=== PATIENT | male | born 1935 | race Caucasian/White ===

== ENCOUNTER 2020-04-02 14:25 | Emergency (ER) | payer MEDICARE, OTHER, SELFPAY ==
[2020-04-02] VITALS (18 sets, daily range): BP systolic 131–185; BP diastolic 61–77; PULSE 62–87; RESP 19–33; TEMP 36.6–37.2; O2SAT 86–100
--- NOTE | 2020-04-02 14:46 | DI.RAD.S_ITS ---
PROCEDURE: XR CHEST 1V INDICATIONS: Dyspnea TECHNIQUE: One view of the chest was acquired. COMPARISON: None. (There is a 2006 chest radiograph, which is not available for review at the time this dictation.) FINDINGS: Surgical changes and devices: Right shoulder arthroplasty hardware is partially seen. Lungs and pleura: Low lung volumes are noted. This causes a crowded appearance to the lung markings and limits evaluation. Generalized interstitial prominence can be seen. No pneumothorax or large pleural effusion can be seen. Mediastinum: Mediastinal contours appear normal. Heart size is normal. Bones and chest wall: No suspicious bony lesions. Age-appropriate bony degenerative changes are seen. Overlying soft tissues appear unremarkable. IMPRESSION: Low lung volumes, with interstitial prominence. The interstitial prominence may be artifactual and related to the low lung volumes or may represent a small amount of pulmonary edema. If clinically appropriate, a short-term followup chest series (with PA and lateral views) performed in deep inspiration is suggested for further evaluation. Dictated by: Oliverio Chaudhary M.D. on 04/02/2020 at 14:25 Approved by: Oliverio Chaudhary M.D. on 04/02/2020 at 14:26
--- NOTE | 2020-04-02 14:57 | ED_ITS ---
HPI - SOB/Dyspnea General Chief Complaint: Shortness of Breath/Dyspnea Stated Complaint: SOB Time Seen by Provider: 04/02/20 14:46 Source: patient and family Mode of arrival: Wheelchair History of Present Illness HPI Narrative: Patient sent here from urgent care from [place] for complaints of dyspnea no chest pain. 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 Seen by cardiology Dr. Skinner, cardiothoracic surgeon Dr. Warren. Is on Eliquis and Lasix. Complains bilateral leg swelling. Very dyspneic with short movements, just standing and pivoting causes him short of breath. No cough cold congestion fever chills. MD Complaint: shortness of breath Related Data Home Medications Medication Instructions Recorded Confirmed Fish Oil (Fish Oil 500 MG Softgel) 1,200 mg PO QDAY #0 08/23/11 atenolol 25 mg PO QDAY #0 08/23/11 naproxen [Naprosyn] 500 mg PO QDAY PRN #0 08/23/11 Glucosamine Sulfate (#GLUCOSAMINE) 750 mg PO BID #0 01/09/12 doxazosin [Cardura] 16 mg PO HS #0 01/09/12 metformin [Glucophage XR] 2,000 mg NG HS #0 01/09/12 Allergies Allergy/AdvReac Type Severity Reaction Status Date / Time lisinopril [LISINOPRIL] AdvReac Mild Cough Verified 04/02/20 15:12 Review of Systems Review of Systems Narrative: GENERAL: Denies chills, fatigue, malaise, fever, sweats. HEENT: Denies sinus pain, ear pain, sore throat RESPIRATORY: Complain dyspnea, denies cough CARDIOVASCULAR: Denies chest pain, palpitations complains of peripheral edema GASTROINTESTINAL: Denies nausea, vomiting, abdominal pain : Denies dysuria, frequency, hematuria MUSCULOSKELETAL: denies muscle or bony pain SKIN: Denies rash, skin lesions NEUROLOGIC: Denies weakness, numbness ROS Unobtainable: All systems reviewed & are unremarkable except as noted in HPI and below Exam Narrative Exam Narrative: GENERAL: in no distress, not toxic not dyspneic HEAD: Normocephalic. EYES: Pupils equal round No scleral icterus. No injection no discharge ENT: Mucous membranes moist. NECK: Trachea midline. CARDIOVASCULAR: Regular rate and rhythm without murmurs RESPIRATORY: Clear to auscultation. Breath sounds equal bilaterally. No wheezes, or rhonchi. Bilateral rales at the bases. GASTROINTESTINAL: Abdomen soft, non-tender EXTREMITIES: No gross deformities. Extensive bilateral symmetric calf in pedal and ankle edema. Nontender. BACK: No flank tenderness. NEURO: AOx4. SKIN: Warm and dry PSYCH: Not anxious, is cooperative Initial Vital Signs Initial Vital Signs: Vital Signs Temperature 98.9 F 04/02/20 14:35 Pulse Rate 73 04/02/20 14:35 Respiratory Rate 33 H 04/02/20 14:35 Blood Pressure 185/73 H 04/02/20 14:35 Pulse Oximetry 86 L 04/02/20 14:35 Course Course Course Narrative: No new issues during course of stay. Patient and understand need for transfer to [facility] for continuity of care Orders Ordered: ED Orders 04/02/20 14:43 Complete Blood Count AUTO DIFF Stat Comprehensive Metabolic Panel Stat NT-proBNP (BNP-Adult 18+) Stat Partial Thromboplastin Time Stat Prothrombin Time INR Stat Troponin & CK Cardiac Panel Stat 04/02/20 14:46 XR chest 1V Stat 04/02/20 15:17 COVID19 Stat Discontinued Medications Aspirin (Aspirin 81 Mg Chew Tab) 324 mg PO NOW ONE Stop: 04/02/20 14:47 Last Admin: 04/02/20 15:12 Dose: 324 mg Documented by: COOPER Furosemide (Furosemide 40 Mg/4 Ml Vial) 40 mg IV NOW ONE Stop: 04/02/20 15:29 Last Admin: 04/02/20 15:46 Dose: 40 mg Documented by: JAIRO Consultations Consultation #1: Spoke with Cardiology, Dr. kc, on-call Cardiology for patient's cardiology group. Agrees patient needs to be transferred to their facility for continuity of care and diuresis and further workup including echocardiogram, hospitalist admit. Reviewed laboratory studies with him for comparison Time: 15:28 Consultation #2: Spoke with hospitalist, Dr. Lux, hospitalist at [facility], will accept patient Vital Signs Vital signs: Vital Signs - 8 hr 04/02/20 14:35 04/02/20 14:53 04/02/20 15:00 Temperature 98.9 F Pulse Rate 73 68 70 Respiratory Rate 33 H Blood Pressure 185/73 H Pulse Oximetry 86 L 99 100 04/02/20 15:01 04/02/20 15:02 04/02/20 15:30 Temperature Pulse Rate 67 62 69 Respiratory Rate 24 Blood Pressure 163/71 H 160/70 H Pulse Oximetry 100 99 99 04/02/20 16:00 04/02/20 16:30 04/02/20 16:31 Temperature Pulse Rate 64 67 63 Respiratory Rate 23 19 21 Blood Pressure 155/68 H 159/67 H Pulse Oximetry 99 99 99 04/02/20 17:00 04/02/20 17:01 04/02/20 17:30 Temperature Pulse Rate 62 64 78 Respiratory Rate 22 22 33 H Blood Pressure 151/68 H Pulse Oximetry 98 98 100 04/02/20 17:31 Temperature Pulse Rate 76 Respiratory Rate 31 H Blood Pressure 131/77 Pulse Oximetry 97 MDM - SOB/Dyspnea Differential Diagnosis Differential diagnosis: Likely congestive heart failure and community acquired pneumonia Lab Data Attestation: I reviewed the patient's lab results. Result diagrams: 04/02/20 14:43 04/02/20 14:43 Labs: Lab Results 04/02/20 04/02/20 04/02/20 Range/Units 14:43 14:43 14:43 WBC 6.7 (4.5-11.0) X10^3/uL RBC 3.32 L (4.5-5.9) X10^6/uL Hgb 9.8 L (13.5-17.5) g/dL Hct 30.0 L (41-53) % MCV 90.3 (80-100) fL MCH 29.6 (26-34) PG MCHC 32.8 (30-36) % RDW 13.7 (11.6-14.8) % Plt Count 181 (150-400) X10^3/uL Neut % (Auto) 73.6 (50-75) % Lymph % (Auto) 16.0 L (25-40) % [place] % (Auto) 8.3 (3-14) % Eos % (Auto) 1.7 L (2-4) % Baso % (Auto) 0.4 (0-2) % Neut # (Auto) 4900 (9892-4394) /uL Lymph # (Auto) 1100 (9672-7164) /uL [place] # (Auto) 600 (0-900) /uL Eos # (Auto) 100 (0-450) /uL Baso # (Auto) 0 (0-100) /uL PT 15.3 H (10.1-12.7) SECONDS INR 1.3 (0.9-1.3) APTT 33 (26.4-36.2) SECONDS Sodium 137 (137-145) mmol/L Potassium 4.0 (3.4-5.1) mmol/L Chloride 97 L (98-107) mmol/L Carbon Dioxide 39 H (22-32) mmol/L BUN 26 H (9-20) mg/dL Creatinine 1.38 H (0.66-1.25) mg/dL Estimated GFR 49.3 L (>60) mL/min BUN/Creatinine Ratio 18.8 (6-22) Glucose 188 H (80-110) mg/dL Calcium 8.9 (8.4-10.2) mg/dL Total Bilirubin 0.4 (0.2-1.3) mg/dL AST 21 (17-59) IU/L ALT 18 (<50) IU/L Alkaline Phosphatase 69 (38-126) U/L Total Creatine Kinase 45 L (55-170) U/L CK-MB (CK-2) TNP CK-MB (CK-2) Rel Index TNP Troponin I 0.078 H (0.01-0.034) ng/mL NT-Pro-B Natriuret Pep 2570 H (<450) pg/mL Total Protein 6.3 (6.3-8.2) g/dL Albumin 3.5 (3.5-5.0) g/dL Globulin 2.8 (1.7-4.1) g/dL Albumin/Globulin Ratio 1.3 (1.0-2.8) SARS-CoV-2 (PCR) (Negative) 04/02/20 Range/Units 15:17 WBC (4.5-11.0) X10^3/uL RBC (4.5-5.9) X10^6/uL Hgb (13.5-17.5) g/dL Hct (41-53) % MCV (80-100) fL MCH (26-34) PG MCHC (30-36) % RDW (11.6-14.8) % Plt Count (150-400) X10^3/uL Neut % (Auto) (50-75) % Lymph % (Auto) (25-40) % [place] % (Auto) (3-14) % Eos % (Auto) (2-4) % Baso % (Auto) (0-2) % Neut # (Auto) (3741-3348) /uL Lymph # (Auto) (5519-3495) /uL [place] # (Auto) (0-900) /uL Eos # (Auto) (0-450) /uL Baso # (Auto) (0-100) /uL PT (10.1-12.7) SECONDS INR (0.9-1.3) APTT (26.4-36.2) SECONDS Sodium (137-145) mmol/L Potassium (3.4-5.1) mmol/L Chloride (98-107) mmol/L Carbon Dioxide (22-32) mmol/L BUN (9-20) mg/dL Creatinine (0.66-1.25) mg/dL Estimated GFR (>60) mL/min BUN/Creatinine Ratio (6-22) Glucose (80-110) mg/dL Calcium (8.4-10.2) mg/dL Total Bilirubin (0.2-1.3) mg/dL AST (17-59) IU/L ALT (<50) IU/L Alkaline Phosphatase (38-126) U/L Total Creatine Kinase (55-170) U/L CK-MB (CK-2) CK-MB (CK-2) Rel Index Troponin I (0.01-0.034) ng/mL NT-Pro-B Natriuret Pep (<450) pg/mL Total Protein (6.3-8.2) g/dL Albumin (3.5-5.0) g/dL Globulin (1.7-4.1) g/dL Albumin/Globulin Ratio (1.0-2.8) SARS-CoV-2 (PCR) Negative (Negative) Imaging Data Chest x-ray: Radiologist's Impression: [address] [id number] ReportSigned Patient: Puma Ramirez JMR#: [id number]: 8Acct:[id number]/Sex: 84 / MDate of Service: 04/02/20Loc: EDAccession Number: [id number] Procedure: XR chest 1V Ordering Provider: Ren Resendiz MD PROCEDURE: XR CHEST 1V INDICATIONS: Dyspnea TECHNIQUE: One view of the chest was acquired. COMPARISON: None. (There is a 2006 chest radiograph, which is not available for review at the time this dictation.) FINDINGS: Surgical changes and devices: Right shoulder arthroplasty hardware is partially seen. Lungs and pleura: Low lung volumes are noted. This causes a crowded appearance to the lung markings and limits evaluation. Generalized interstitial prominence can be seen. No pneumothorax or large pleural effusion can be seen. Mediastinum: Mediastinal contours appear normal. Heart size is normal. Bones and chest wall: No suspicious bony lesions. Age-appropriate bony degenerative changes are seen. Overlying soft tissues appear unremarkable. IMPRESSION: Low lung volumes, with interstitial prominence. The interstitial prominence may be artifactual and related to the low lung volumes or may represent a small amount of pulmonary edema. If clinically appropriate, a short-term followup chest series (with PA and lateral views) performed in deep inspiration is suggested for further evaluation. Dictated by: Oliverio Chaudhary M.D. on 04/02/2020 at 14:25 Approved by: Oliverio Chaudhary M.D. on 04/02/2020 at 14:26 ECG Data Attestation: I personally reviewed and interpreted this ECG as follows: Interpretation: Atrial sensed ventricular paced rhythm. Rate 70. No ST elevation or depression MDM Narrative Medical decision making narrative: Appropriate for transfer for continuity of care as patient had recent surgery pacemaker and valve replacement. Patient and agree and understand. Discharge Plan Departure Patient Disposition: [facility] Clinical Impression: Dyspnea Qualifiers: Dyspnea type: unspecified Qualified Code(s): R06.00 - Dyspnea, unspecified Prescriptions: No Action atenolol 100 MG tablet 25 mg PO QDAY Qty: 0 RF: 0 Fish Oil (Fish Oil 500 MG Softgel) 1,200 mg PO QDAY Qty: 0 RF: 0 naproxen [Naprosyn] 500 MG tablet 500 mg PO QDAY PRNQty: 0 RF: 0 doxazosin [Cardura] 8 MG tablet 16 mg PO HS Qty: 0 RF: 0 Glucosamine Sulfate (#GLUCOSAMINE) 750 mg PO BID Qty: 0 RF: 0 metformin [Glucophage XR] 500 MG tablet extended release 24 hr 2,000 mg NG HS Qty: 0 RF: 0 Referrals: Justino Vigil DO [Primary Care Provider] -
[2020-04-02 15:00] LABS: Add Manual Diff / Slide Review NO; Basophils Absolute Auto 0 /uL (0-100); Basophils Percent Auto 0.4 % (0-2); Eosinophils Absolute Auto 100 /uL (0-450); Eosinophils Percent Auto 1.7 % (2-4); Hemoglobin 9.8 g/dL (13.5-17.5); Lymphocytes Absolute Auto 1100 /uL (1100-4500); Mean Corpuscular HGB Conc 32.8 % (30-36); Mean Corpuscular Hemoglobin 29.6 PG (26-34); Mean Corpuscular Volume 90.3 fL (80-100); Monocytes Absolute Auto 600 /uL (0-900); Monocytes Percent Auto 8.3 % (3-14); Neutrophils Absolute Auto 4900 /uL (1500-7000); Neutrophils Percent Auto 73.6 % (50-75); Platelet Count 181 X10^3/uL (150-400); Red Blood Cell Count 3.32 X10^6/uL (4.5-5.9); Red Cell Distribution Width 13.7 % (11.6-14.8); White Blood Cell Count 6.7 X10^3/uL (4.5-11.0)
[2020-04-02 15:07] LABS: INR 1.3 (0.9-1.3); Prothrombin Time 15.3 SECONDS (10.1-12.7)
[2020-04-02 15:10] LABS: PTT Partial Thromboplastin Tim 33 SECONDS (26.4-36.2)
[2020-04-02 15:12] LABS: Alanine Aminotransferase 18 IU/L (<50); Albumin 3.5 g/dL (3.5-5.0); Albumin Globulin Ratio 1.3 (1.0-2.8); Alkaline Phosphatase 69 U/L (38-126); Aspartate Aminotransferase 21 IU/L (17-59); BUN Creatinine Ratio 18.8 (6-22); Bilirubin Total 0.4 mg/dL (0.2-1.3); Blood Urea Nitrogen 26 mg/dL (9-20); Calcium 8.9 mg/dL (8.4-10.2); Carbon Dioxide 39 mmol/L (22-32); Chloride 97 mmol/L (98-107); Creatine Kinase 45 U/L (55-170); Estimated Glomerular Filt Rate 49.3 mL/min (>60); Globulin 2.8 g/dL (1.7-4.1); Glucose 188 mg/dL (80-110); HEMOLYSIS < 15 (0-50); Sodium 137 mmol/L (137-145); Total Protein 6.3 g/dL (6.3-8.2)
[2020-04-02] MEDS: ASPIRIN 81 MG CHEW TAB 324 MG PO (15:12)
[2020-04-02 15:24] LABS: NT-proBNP (BNP-Adult 18+) 2570 pg/mL (<450); Troponin I 0.078 ng/mL (0.01-0.034)
[2020-04-02 15:42] LABS: COVID19 -Nasal RAPID Negative (Negative)
[2020-04-02] MEDS: FUROSEMIDE 40 MG/4 ML VIAL IV (15:46)
== END 2020-04-02 19:25 | disposition short-term general hospital (02) ==
PROVIDERS: Emergency Provider Emergency Medicine; Family Provider Family Medicine; PCP Family Medicine
DX: R06.00 Dyspnea, unspecified (principal); Z95.0 Presence of cardiac pacemaker; Z95.2 Presence of prosthetic heart valve; M79.89 Other specified soft tissue disorders; Z20.822 Contact with and (suspected) exposure to COVID-19
CPT/HCPCS: 36415; 71045; 80053; 82550; 83880; 84484; 85025; 85610; 85730; 87635; 93005; 96374; 99284; C9803; J1940

== ENCOUNTER 2021-02-01 18:28 | Emergency (ER) | payer MEDICARE, OTHER, SELFPAY ==
[2021-02-01] VITALS (13 sets, daily range): BP systolic 103–183; BP diastolic 69–108; PULSE 60–70; RESP 17–32; TEMP 36.6; O2SAT 91–98; BMI 40.6
--- NOTE | 2021-02-01 18:58 | DI.RAD.S_ITS ---
PROCEDURE: XR CHEST 2V INDICATIONS: shortness of breath TECHNIQUE: 2 views of the chest were acquired. COMPARISON: None. FINDINGS: Surgical changes and devices: None. Lungs and pleura: Lungs are clear. No pleural effusions or pneumothorax. Mediastinum: Mediastinal contours are normal. Heart size is normal. Bones and chest wall: No suspicious bony abnormalities. Soft tissues appear unremarkable. IMPRESSION: No acute cardiopulmonary process demonstrated radiographically. Dictated by: Geoff Lakhani M.D. on 02/01/2021 at 19:33 Approved by: Geoff Lakhani M.D. on 02/01/2021 at 19:33
[2021-02-01 19:07] LABS: Add Manual Diff / Slide Review NO; Basophils Absolute Auto 100 /uL (0-100); Eosinophils Absolute Auto 100 /uL (0-450); Hematocrit 35.9 % (41-53); Hemoglobin 12.2 g/dL (13.5-17.5); Lymphocytes Absolute Auto 1400 /uL (1100-4500); Lymphocytes Percent Auto 19.1 % (25-40); Mean Corpuscular HGB Conc 33.9 % (30-36); Mean Corpuscular Hemoglobin 29.7 PG (26-34); Mean Corpuscular Volume 87.6 fL (80-100); Monocytes Absolute Auto 500 /uL (0-900); Monocytes Percent Auto 6.5 % (3-14); Neutrophils Absolute Auto 5200 /uL (1500-7000); Neutrophils Percent Auto 71.4 % (50-75); Platelet Count 168 X10^3/uL (150-400); Red Cell Distribution Width 14.1 % (11.6-14.8); White Blood Cell Count 7.3 X10^3/uL (4.5-11.0)
--- NOTE | 2021-02-01 19:07 | ED.SKABFB ---
HPI - Skin/Abscess/Foreign Bdy General Chief complaint: Extremity Problem,Nontraumatic Stated complaint: possible phlebitis Time Seen by Provider: 02/01/21 18:52 Source: patient Mode of arrival: Wheelchair Limitations: no limitations History of Present Illness HPI narrative: Patient is a 85-year-old male who is here for evaluation swelling to his bilateral lower extremities with left being greater than right. This is been going on for the past several days. He does have history of heart failure. His on diuretics. He did miss a couple doses of his afternoon dose of diuretics over the past couple days. He has been taking his morning doses. He is having shortness of breath but not any worse than normal. He has no chest pain. He initially went to walk-in clinic for evaluation of shoulder pain and back pain and arm pain and left hip pain and left knee pain. It was the provider at the walk-in clinic noticed that his lower extremity is swollen and that is what he was sent to the emergency department to have evaluated. He denies any falls. He states that his shoulder and back and arm pain he can be reproduced with movement but not reproduce with palpation. He is on anticoagulation. Has had a aortic valve replacement. Related Data Home Medications Medication Instructions Recorded Confirmed Fish Oil (Fish Oil 500 MG Softgel) 1,200 mg PO QDAY #0 08/23/11 atenolol 100 mg tablet 25 mg PO QDAY #0 08/23/11 naproxen 500 mg tablet (Naprosyn) 500 mg PO QDAY PRN #0 08/23/11 Glucosamine Sulfate (#GLUCOSAMINE) 750 mg PO BID #0 01/09/12 doxazosin 8 mg tablet (Cardura) 16 mg PO HS #0 01/09/12 metformin 500 mg tablet,extended 2,000 mg NG HS #0 01/09/12 release 24 hr (Glucophage XR) Allergies Allergy/AdvReac Type Severity Reaction Status Date / Time lisinopril [LISINOPRIL] AdvReac Mild Cough Verified 04/02/20 15:12 Review of Systems Constitutional Constitutional: Denies fever(s) and Denies headache(s) ENT Ears, Nose, Mouth, and Throat: Denies headache(s) Cardiovascular Cardiovascular: Denies chest pain and Denies dyspnea Respiratory Respiratory: Denies dyspnea Gastrointestinal Gastrointestinal: Reports system reviewed and no additional complaints, except as documented Musculoskeletal Musculoskeletal: Reports system reviewed and no additional complaints, except as documented and Reports as per HPI Integumentary/Breasts Skin/Breast: Reports system reviewed and no additional complaints, except as documented Neurologic Neurologic: Denies headache(s) Hematologic/Lymphatic On Anticoagulants: Yes Patient History Medical History CHF (congestive heart failure) Hypertension Surgical History (Updated 02/02/21 @ 01:58 by Surjit Vincent DO) Aortic valve replaced Social History Smoking Status: Former smoker Smoking Status: Former smoker Substance Use Type: does not use Exam Initial Vital Signs Initial Vital Signs: Vital Signs Temperature 97.9 F 02/01/21 18:45 Pulse Rate 70 02/01/21 18:45 Respiratory Rate 28 H 02/01/21 18:45 Pulse Oximetry 96 02/01/21 18:45 Const General: cooperative HENMT Head: normal to inspection and normocephalic Resp Effort & Inspection: not labored, no respiratory distress and tachypneic Auscultation: clear to auscultation bilaterally Cardio Rate: regular rate Rhythm: regular rhythm Heart Sounds: murmur GI Palpation: soft Skin General: dry skin Neuro General: patient alert, patient awake, patient oriented x3 and moves all extremities Extrem Other: I cannot reproduce any discomfort with palpation of the left scapula over the left shoulder the left arm. He does have bilateral lower extremity swelling which appears to be localized below the knees. Left is greater than right. No erythema. Psych Appearance: grossly normal and well kempt Scores GCS Warner coma scale eye opening: Spontaneous Itzel coma scale verbal response: Orientated Warner coma scale motor response: Obey commands Itzel coma scale total score: 15 Course Orders Ordered: ED Orders 02/01/21 18:50 Complete Blood Count AUTO DIFF Stat Comprehensive Metabolic Panel Stat Lactate (Lactic Acid) Stat NT-proBNP (BNP-Adult 18+) Stat Prothrombin Time INR Stat 02/01/21 18:58 XR chest 2V Stat EKG-12 Lead Stat Measure peak expiratory flow ONCE RT Consult Eval and Treat Now 02/01/21 19:09 US periph venous low extrem bi Stat 02/01/21 19:17 Troponin & CK Cardiac Panel Stat Vital Signs Vital signs: Vital Signs - 8 hr 02/01/21 18:45 02/01/21 18:46 02/01/21 19:00 Temperature 97.9 F Pulse Rate 70 65 69 Respiratory Rate 28 H 32 H 31 H Blood Pressure 103/71 Pulse Oximetry 96 98 98 02/01/21 19:01 02/01/21 19:30 02/01/21 19:31 Temperature Pulse Rate 63 64 61 Respiratory Rate 20 20 20 Blood Pressure 169/74 H Pulse Oximetry 97 96 95 02/01/21 20:00 02/01/21 20:01 02/01/21 20:04 Temperature Pulse Rate 66 68 61 Respiratory Rate 20 22 21 Blood Pressure 183/108 H 158/69 H Pulse Oximetry 96 94 94 02/01/21 20:30 02/01/21 20:31 02/01/21 21:00 Temperature Pulse Rate 63 60 65 Respiratory Rate 17 17 21 Blood Pressure 164/76 H Pulse Oximetry 91 92 94 02/01/21 21:23 Temperature Pulse Rate 64 Respiratory Rate 20 Blood Pressure 169/73 H Pulse Oximetry 94 MDM - Skin/Abscess/Foreign Bdy Lab Data Attestation: I reviewed the patient's lab results. Result diagrams: 02/01/21 18:50 02/01/21 18:50 Labs: Lab Results 02/01/21 02/01/21 02/01/21 Range/Units 18:50 18:50 18:50 WBC 7.3 (4.5-11.0) X10^3/uL RBC 4.10 L (4.5-5.9) X10^6/uL Hgb 12.2 L (13.5-17.5) g/dL Hct 35.9 L (41-53) % MCV 87.6 (80-100) fL MCH 29.7 (26-34) PG MCHC 33.9 (30-36) % RDW 14.1 (11.6-14.8) % Plt Count 168 (150-400) X10^3/uL Neut % (Auto) 71.4 (50-75) % Lymph % (Auto) 19.1 L (25-40) % [place] % (Auto) 6.5 (3-14) % Eos % (Auto) 2.0 (2-4) % Baso % (Auto) 1.0 (0-2) % Neut # (Auto) 5200 (6106-5909) /uL Lymph # (Auto) 1400 (6801-1299) /uL Providence # (Auto) 500 (0-900) /uL Eos # (Auto) 100 (0-450) /uL Baso # (Auto) 100 (0-100) /uL PT 14.4 H (10.1-12.7) SECONDS INR 1.3 (0.9-1.3) Sodium 140 (137-145) mmol/L Potassium 4.0 (3.4-5.1) mmol/L Chloride 103 (98-107) mmol/L Carbon Dioxide 30 (22-32) mmol/L BUN 36 H (9-20) mg/dL Creatinine 1.70 H (0.66-1.25) mg/dL Estimated GFR 38.7 L (>60) mL/min BUN/Creatinine Ratio 21.2 (6-22) Glucose 339 H (80-110) mg/dL Lactate (0.7-2.1) mmol/L Calcium 9.3 (8.4-10.2) mg/dL Total Bilirubin 0.5 (0.2-1.3) mg/dL AST 27 (17-59) IU/L ALT 16 (<50) IU/L Alkaline Phosphatase 66 (38-126) U/L Total Creatine Kinase (55-170) U/L CK-MB (CK-2) CK-MB (CK-2) Rel Index Troponin I (0.01-0.034) ng/mL NT-Pro-B Natriuret Pep 3140 H (<450) pg/mL Total Protein 6.8 (6.3-8.2) g/dL Albumin 3.9 (3.5-5.0) g/dL Globulin 2.9 (1.7-4.1) g/dL Albumin/Globulin Ratio 1.3 (1.0-2.8) 02/01/21 02/01/21 Range/Units 18:50 19:17 WBC (4.5-11.0) X10^3/uL RBC (4.5-5.9) X10^6/uL Hgb (13.5-17.5) g/dL Hct (41-53) % MCV (80-100) fL MCH (26-34) PG MCHC (30-36) % RDW (11.6-14.8) % Plt Count (150-400) X10^3/uL Neut % (Auto) (50-75) % Lymph % (Auto) (25-40) % Providence % (Auto) (3-14) % Eos % (Auto) (2-4) % Baso % (Auto) (0-2) % Neut # (Auto) (6121-2397) /uL Lymph # (Auto) (1521-3012) /uL Providence # (Auto) (0-900) /uL Eos # (Auto) (0-450) /uL Baso # (Auto) (0-100) /uL PT (10.1-12.7) SECONDS INR (0.9-1.3) Sodium (137-145) mmol/L Potassium (3.4-5.1) mmol/L Chloride (98-107) mmol/L Carbon Dioxide (22-32) mmol/L BUN (9-20) mg/dL Creatinine (0.66-1.25) mg/dL Estimated GFR (>60) mL/min BUN/Creatinine Ratio (6-22) Glucose (80-110) mg/dL Lactate 1.5 (0.7-2.1) mmol/L Calcium (8.4-10.2) mg/dL Total Bilirubin (0.2-1.3) mg/dL AST (17-59) IU/L ALT (<50) IU/L Alkaline Phosphatase (38-126) U/L Total Creatine Kinase 96 (55-170) U/L CK-MB (CK-2) TNP CK-MB (CK-2) Rel Index TNP Troponin I 0.042 H (0.01-0.034) ng/mL NT-Pro-B Natriuret Pep (<450) pg/mL Total Protein (6.3-8.2) g/dL Albumin (3.5-5.0) g/dL Globulin (1.7-4.1) g/dL Albumin/Globulin Ratio (1.0-2.8) Imaging Data Chest x-ray: Radiologist's Impression: [address] [address] XRay Report Signed Patient: Puma Ramirez MR#: [id number] : 1935 Acct:[id number] Age/Sex: 85 / M Date of Service: 02/01/21 Loc: ED Accession Number: [id number] ?? Procedure: XR chest 2V Ordering Provider: Surjit Vincent D.O. PROCEDURE:? XR CHEST 2V ? INDICATIONS:? shortness of breath ? TECHNIQUE:? 2 views of the chest were acquired.? ? COMPARISON:? None. ? FINDINGS:? ? Surgical changes and devices:? None.? ? Lungs and pleura:? Lungs are clear.? No pleural effusions or pneumothorax.? ? Mediastinum:? Mediastinal contours are normal.? Heart size is normal.? ? Bones and chest wall:? No suspicious bony abnormalities.? Soft tissues appear unremarkable.? ? IMPRESSION:? No acute cardiopulmonary process demonstrated radiographically. ? ? Dictated by: Geoff Lakhani M.D. on 02/01/2021 at 19:33 ? ? Approved by: Geoff Lakhani M.D. on 02/01/2021 at 19:33?? US - DVT: Radiologist's Impression: [place] [address] Ultrasound Report Signed Patient: Puma Ramirez MR#: [id number] : 1935 Acct:[id number] Age/Sex: 85 / M Date of Service: 02/01/21 Loc: ED Accession Number: [id number] ?? Procedure: US periph venous low extrem bi Ordering Provider: Surjit Vincent D.O. PROCEDURE:? US PERIPH VENOUS LOW EXTREM BI ? INDICATIONS:? PAIN ? TECHNIQUE:? Real-time imaging, as well as color and pulse Doppler interrogation, were performed of the deep veins of both legs from the inguinal ligament to the popliteal fossa.? ? COMPARISON:? None. ? FINDINGS:? ? Right: The common femoral, femoral and popliteal veins are normally compressible, and free of intraluminal thrombus.? Color and pulse Doppler demonstrate normal phasic intravascular flow.? There is normal augmentation response to distal compression maneuver.? ? Left: The common femoral, femoral and popliteal veins are normally compressible, and free of intraluminal thrombus.? Color and pulse Doppler demonstrate normal phasic intravascular flow.? There is normal augmentation response to distal compression maneuver.? ? ? IMPRESSION:? No sonographic evidence of DVT. ? ? Dictated by: Geoff Lakhani M.D. on 02/01/2021 at 20:29 ? ? Approved by: Geoff Lakhani M.D. on 02/01/2021 at 20:29?? ECG Data Attestation: I personally reviewed and interpreted this ECG as follows: Interpretation: Ventricular paced Rate is 65 MDM Narrative Medical decision making narrative: No DVT noted on his lower extremity. He is on anticoagulation. No signs of cellulitis. He has missed a couple doses of his diuretic especially the afternoon doses. We did discuss that he could increase his morning dose and his evening dose is needed to help with diuresis. He does have a elevated BNP. No chest pain. He is ventricularly paced which is normal for him. Patient is on a statin. He was on a statin many years ago and got quite a bit of muscle aches from this. Since his heart surgery earlier this year he was placed back on a statin knee is wondering whether not his shoulder and hip and knee discomfort to related to this or not. We did discuss this. He is going to stop his statin to see if his symptoms resolve. If they do he will restart on the medication and see if they come back. He understood the discussion we had about increasing his diuretic. No indication for antibiotics. He was given return precautions and follow-up instructions. He expressed understanding and agreement. Discharge Plan Departure Patient Disposition: Home Clinical Impression: CHF (congestive heart failure), Edema, peripheral Instructions: DI for Heart Failure Activity Restrictions/Additional Instructions: The ultrasounds today do not show any signs of a blood clot. I recommend that you increase your Torsemide from 40 mg in the morning and 20 mg in the afternoon to 60 mg in the morning and 40 mg in the afternoon. You can adjust this medication like we discussed. Contact your primary doctor for a follow-up. Return to the emergency department for any new or worsening symptoms. Prescriptions: No Action atenolol 100 MG tablet 25 mg PO QDAY Qty: 0 0RF Fish Oil (Fish Oil 500 MG Softgel) 1,200 mg PO QDAY Qty: 0 0RF naproxen [Naprosyn] 500 MG tablet 500 mg PO QDAY PRNQty: 0 0RF doxazosin [Cardura] 8 MG tablet 16 mg PO HS Qty: 0 0RF Glucosamine Sulfate (#GLUCOSAMINE) 750 mg PO BID Qty: 0 0RF metformin [Glucophage XR] 500 MG tablet extended release 24 hr 2,000 mg NG HS Qty: 0 0RF Referrals: Justino Vigil DO [Primary Care Provider] -
--- NOTE | 2021-02-01 19:09 | DI.US.S_ITS ---
PROCEDURE: US PERIPH VENOUS LOW EXTREM BI INDICATIONS: PAIN TECHNIQUE: Real-time imaging, as well as color and pulse Doppler interrogation, were performed of the deep veins of both legs from the inguinal ligament to the popliteal fossa. COMPARISON: None. FINDINGS: Right: The common femoral, femoral and popliteal veins are normally compressible, and free of intraluminal thrombus. Color and pulse Doppler demonstrate normal phasic intravascular flow. There is normal augmentation response to distal compression maneuver. Left: The common femoral, femoral and popliteal veins are normally compressible, and free of intraluminal thrombus. Color and pulse Doppler demonstrate normal phasic intravascular flow. There is normal augmentation response to distal compression maneuver. IMPRESSION: No sonographic evidence of DVT. Dictated by: Geoff Lakhani M.D. on 02/01/2021 at 20:29 Approved by: Geoff Lakhani M.D. on 02/01/2021 at 20:29
[2021-02-01 19:21] LABS: INR 1.3 (0.9-1.3); Prothrombin Time 14.4 SECONDS (10.1-12.7)
[2021-02-01 19:27] LABS: Alanine Aminotransferase 16 IU/L (<50); Albumin 3.9 g/dL (3.5-5.0); Albumin Globulin Ratio 1.3 (1.0-2.8); Alkaline Phosphatase 66 U/L (38-126); Aspartate Aminotransferase 27 IU/L (17-59); BUN Creatinine Ratio 21.2 (6-22); Bilirubin Total 0.5 mg/dL (0.2-1.3); Blood Urea Nitrogen 36 mg/dL (9-20); Calcium 9.3 mg/dL (8.4-10.2); Carbon Dioxide 30 mmol/L (22-32); Chloride 103 mmol/L (98-107); Estimated Glomerular Filt Rate 38.7 mL/min (>60); Globulin 2.9 g/dL (1.7-4.1); Glucose 339 mg/dL (80-110); HEMOLYSIS < 15 (0-50); Sodium 140 mmol/L (137-145); Total Protein 6.8 g/dL (6.3-8.2)
[2021-02-01 19:28] LABS: Creatine Kinase 96 U/L (55-170)
[2021-02-01 19:29] LABS: Lactate (Lactic Acid) 1.5 mmol/L (0.7-2.1)
[2021-02-01 19:36] LABS: NT-proBNP (BNP-Adult 18+) 3140 pg/mL (<450)
[2021-02-01 19:39] LABS: Troponin I 0.042 ng/mL (0.01-0.034)
== END 2021-02-01 21:28 | disposition home or self-care (01) ==
PROVIDERS: Emergency Provider Emergency Medicine; Family Provider Family Medicine; PCP Family Medicine
DX: I50.9 Heart failure, unspecified (principal); R60.0 Localized edema; R03.0 Elevated blood-pressure reading, without diagnosis of hypertension
CPT/HCPCS: 36415; 71046; 80053; 82550; 83605; 83880; 84484; 85025; 85610; 93005; 93970; 99284